=== PATIENT | male | born 1970 | race African-American/Black ===

== ENCOUNTER 2018-01-04 10:33 | Observation (INO) | payer BC ==
[2018-01-04] MEDS ORDERED: NEOSTIGMINE INJ ONE (10:35)
[2018-01-04] MEDS ORDERED: VERSED ONE (10:35)
[2018-01-04 10:38] VITALS: BMI 30.8
--- NOTE | 2018-01-04 13:23 | DR.GENAD ---
HPI - PCP Primary Care Physician: Rose - Complaint/Symptoms Chief Complaint Doctors Comments: Patient presents with complaint of right lower quadrant pain for one days duration. He denies fever, vomiting or diarrhea. He denies any allergies. Chief Complaint:: "Since about yesterday morning my lower right abdomen has been hurting really bad. It feels like a cramping pain." - Source History Provided: Patient - Mode of Arrival Mode of Arrival: Ambulatory - Timing Onset of Chief Complaint: 01/03/18 PMH - PMH Past Medical History: Yes Past Medical History: Hypertension Past Surgical History: Yes Surgical History: Ortho Surgery Past Surgical History Comment: Thumb - Family History History of Family Medical Conditions: Yes Family Medical History: [place], Hypertension - Social History Does patient currently use any type of tobacco product: No Have you used tobacco products in the last 12 months: No Type of Tobacco Use: None Does any household member use tobacco: No Alcohol Use: None Do you use any recreational Drugs:: No Lives With: Family Lives Where: Home - infectious screening In the last 2 months have you had wt loss of >10#?: NO Have you had fever, night sweats or hemotysis?: No Have you traveled outside the country in the last 6 months?: No Isolation: Standard ROS - Review of Systems Constitutional: No Symptoms Reported Eyes: No Symptoms Reported ENTM: No Symptoms Reported Respiratoy: No Symptoms Reported Cardiovascular: No Symptoms Reported Gastrointestinal/Abdominal: Abdominal Pain (RLQ) Genitourinary: No Symptoms Reported Neurological: No Symptoms Reported Musculoskeletal: No Symptoms Reported Integumentary: No Symptoms Reported Hematologic/Lymphatic: No Symptoms Reported Endocrine: No Symptoms Reported Psychiatric: No Symptoms Reported All Other Systems: Reviewed and Negative PE - Vital Signs Vitals: Temperature 98.1 F Pulse Rate 66 Respiratory Rate 18 Blood Pressure 147/83 O2 Sat by Pulse Oximetry 98 - General Limitations: No Limitations General Appearance: Alert, In No Apparent Distress - Head Head Exam: Normal Inspection, Atraumatic - Eyes Eye exam: Normal Appearance, PERRL, EOMI - ENT ENT Exam: Normal Exam External Ear Exam: Normal External Inspection TM/Canal Exam: Bilateral Normal Nose Exam: Normal Nose Exam Mouth Exam: Normal Inspection Throat Exam: Normal Inspection - Neck Neck Exam: Normal Inspection - Chest Chest Inspection: Normal Inspection - Respiratory Respiratory Exam: Normal Lung Sounds Bilat Respiratory Exam: Bilateral Clear to Auscultation - Cardiovascular Cardiovascular Exam: Regular Rate, Normal Rhythm - Abdominal Exam Abdominal Exam: Normal Inspection, Normal Bowel Sounds Abdominal Tenderness: RLQ - Extremities Extremities Exam: Normal Inspection, Full ROM - Back Back Exam: Normal Inspection, Full ROM - Neurologic Neurological Exam: Alert, Oriented X3, CN II-XII Intact - Psychiatric Psychiatric Exam: Normal Affect, Normal Mood - Skin Skin Exam: Warm, Dry, Intact Course - Reevaluation 1st: Unchanged - Consultation Called: 18:35 (Dr Church to admit for further evaluation and treatment) ROR - Labs Reviewed Result Diagrams: 01/04/18 14:15 01/04/18 13:36 Laboratory: WBC 6.1 X10^3/uL (3.6-10.0) 01/04/18 14:15 RBC 4.57 X10^6/uL (4.7-6.0) L 01/04/18 14:15 Hgb 14.9 g/dL (13.5-18.0) 01/04/18 14:15 Hct 43.0 % (42.0-54.0) 01/04/18 14:15 MCV 94.1 fL (80.0-100.0) 01/04/18 14:15 MCH 32.5 pg (27.0-34.0) 01/04/18 14:15 MCHC 34.6 g/dL (33.0-35.0) 01/04/18 14:15 RDW 12.8 % (11.6-16.5) 01/04/18 14:15 Plt Count 164 X10^3/uL (150.0-450.0) 01/04/18 14:15 MPV 8.6 fL (7.4-11.0) 01/04/18 14:15 Neut % 73.7 % (42.0-75.0) 01/04/18 14:15 Lymph % 16.6 % (21.0-51.0) L 01/04/18 14:15 [place] % 8.3 % (0.0-13.0) 01/04/18 14:15 Eos % 1.0 % (0.9-2.9) 01/04/18 14:15 Baso % 0.4 % (0.2-1.0) 01/04/18 14:15 Neut # 4.5 x10^3/uL (2.2-4.8) 01/04/18 14:15 Lymph # 1.0 X10^3/uL (1.3-2.9) L 01/04/18 14:15 Pitt # 0.5 x10^3/uL (0.3-0.8) 01/04/18 14:15 Eos # 0.1 x10^3/uL (0.0-0.2) 01/04/18 14:15 Baso # 0.0 X10^3/uL (0.0-0.1) 01/04/18 14:15 Absolute Nucleated RBC 0.0 /100WBC 01/04/18 14:15 Sodium 140 mmol/L (136-145) 01/04/18 13:36 Corrected Sodium TNP 01/04/18 13:36 Potassium 3.8 mmol/L (3.5-5.1) 01/04/18 13:36 Chloride 104 mmol/L (98-107) 01/04/18 13:36 Carbon Dioxide 31.0 mmol/L (21-32) 01/04/18 13:36 BUN 18 mg/dL (7-18) 01/04/18 13:36 Creatinine 1.17 mg/dL (0.70-1.30) 01/04/18 13:36 Est GFR (MDRD) Af Amer > 60 (>60) 01/04/18 13:36 Est GFR (MDRD) Non-Af > 60 (>60) 01/04/18 13:36 Glucose 93 mg/dL (65-99) 01/04/18 13:36 Calcium 8.7 mg/dL (8.5-10.1) 01/04/18 13:36 C-Reactive Protein 66.60 mg/L (0-3.0) H 01/04/18 13:36 - XRAY XRAY Interpreted by: Radiologist (Acute Abdomen: The heart is borderline enlarged. There is linear scar versus subsegmental atelectasis in the left mid lung. There is a nonspecific bowel gas pattern with a few midly air distended loops of small bowel and scattered air fluid levels withic could be seen with gastroenteritis without findigns of hig grade obstruction or ileus with air and stool noted throughout the colon. There are numerous radiopaque densities scattered throughout the upper abdomen and right lower quadrant which could reflext soft tissue calcifications or ingested substance and for which clinical correlation is recommended. Inspissated barium could conceivable give a similar it appearance if recent contrasted CT was performed. Osseous structuures are intact. Impression: Borderline cardiomegaly. Left midlung scar versus subsegmental atelectasis. Nonspecific bowel gas pattern. Numerous radiopaque densities in the abdomen CT Abd with Contrast: The appendix measures 1.27 cm diameter with a thickened wall. There is minimal stranding of fat planes about the appendix. There is no appendiculith. Three is no free fluid. There is no bowel distention. The liver and spleen and pancreas and kidneys and adrenal glands are unremarkab.e. There is a small umbilical hernia containing a loop of small bowel. Impression: Early acute appendicitis.) - Diagnosis Discharge Problem: Early appendicitis - Discharge Plan Condition: Stable - Follow ups/Referrals Follow ups/Referrals: Antionette PARK [Primary Care Provider] - 3 days - Instructions
--- NOTE | 2018-01-04 14:02 | RAD ---
HISTORY: Right lower quadrant pain Study: Acute abdominal series, three views were obtained Comparison: None Findings: The heart is borderline enlarged. There is linear scar versus subsegmental atelectasis in the left mi d lung. There is a nonspecific bowel gas pattern with a few mildly air distended loops of small bowel and scattered air-fluid levels which could be seen with gastroenteritis without findings of high-gra de obstruction or ileus with air and stool noted throughout the colon. There are numerous radiopaque densities scattered throughout the upper abdomen and right lower quadrant which could reflect soft ti ssue calcifications or ingested substance and for which clinical correlation is recommended. Inspissa zeferino barium could conceivably give a similar it appearance if recent contrasted CT was performed. Osse ous structures are intact. IMPRESSION: Borderline cardiomegaly. Left midlung scar versus subsegmental atelectasis. Nonspecific bowel gas pat tern. Numerous radiopaque densities in the abdomen as above. Reported By:
[2018-01-04 14:03] LABS: BLOOD UREA NITROGEN 18 mg/dL (7-18); CALCIUM 8.7 mg/dL (8.5-10.1); CHLORIDE 104 mmol/L (98-107); CREATININE 1.17 mg/dL (0.70-1.30); SODIUM 140 mmol/L (136-145); eGFR BLACK RACES > 60 (>60); eGFR NON BLACK RACES > 60 (>60)
[2018-01-04 14:24] LABS: BASOPHILS % (AUTO) 0.4 % (0.2-1.0); EOSINOPHILS # (AUTO) 0.1 x10^3/uL (0.0-0.2); HEMOGLOBIN 14.9 g/dL (13.5-18.0); LYMPHOCYTES % (AUTO) 16.6 % (21.0-51.0); MEAN CORPUSCULAR HEMOGLOBIN 32.5 pg (27.0-34.0); MEAN CORPUSCULAR HGB CONC 34.6 g/dL (33.0-35.0); MEAN CORPUSCULAR VOLUME 94.1 fL (80.0-100.0); MEAN PLATELET VOLUME 8.6 fL (7.4-11.0); MONOCYTES # (AUTO) 0.5 x10^3/uL (0.3-0.8); MONOCYTES % (AUTO) 8.3 % (0.0-13.0); NEUTROPHILS # (AUTO) 4.5 x10^3/uL (2.2-4.8); NEUTROPHILS % (AUTO) 73.7 % (42.0-75.0); PLATELET COUNT 164 X10^3/uL (150.0-450.0); RED BLOOD COUNT 4.57 X10^6/uL (4.7-6.0); RED CELL DISTRIBUTION WIDTH 12.8 % (11.6-16.5); WHITE BLOOD COUNT 6.1 X10^3/uL (3.6-10.0)
[2018-01-04] MEDS ORDERED: SUPRANE IN ONE (15:26)
[2018-01-04] MEDS ORDERED: LTA KIT LIDOCAINE 4% ONE (15:26)
[2018-01-04] MEDS ORDERED: ROBINUL ONE (15:26)
[2018-01-04] MEDS ORDERED: ZOFRAN INJ 4 MG VIAL ONE (15:26)
[2018-01-04] MEDS ORDERED: QUELICIN (OR ANECTINE) ONE (15:26)
[2018-01-04] MEDS ORDERED: DIPRIVAN VIAL ONE (15:26)
[2018-01-04] MEDS ORDERED: XYLOCAINE 2 % (PLAIN) ONE (15:26)
[2018-01-04] MEDS ORDERED: NORCURON INJ 10 MG VIAL ONE (15:26)
--- NOTE | 2018-01-04 17:39 | CT ---
History: Abdominal pain and right lower quadrant pain Study: CT of the abdomen and pelvis with 100 mL Omnipaque 350. Sagittal and coronal reformations were provided. Comparison: None Findings: The appendix measures 1.27 cm diameter with a thickened wall. There is minimal stranding of fat planes about the appendix. There is no appendiculith. There is no free fluid. There is no bowel distention. The liver and spleen and pancreas and kidneys and adrenal glands are unremarkable. There is a small u mbilical hernia containing a loop of small bowel. Impression: Early acute appendicitis Reported By:
[2018-01-04] MEDS ORDERED: ANCEF VIAL 1 GM ONE (17:59)
[2018-01-04] MEDS ORDERED: NS 100 ML IV + SPIKE MINIBAG* 100 ML IV ONE (17:59)
[2018-01-04] MEDS ORDERED: LR 1000 ML IV 1,000 ML IV ONE ×2 (18:00→21:05)
[2018-01-04] MEDS: ANCEF VIAL 1 GM 1 GM in NS 100 ML IV + SPIKE MINIBAG* 100 ML IV SCH (18:07)
[2018-01-04] MEDS ORDERED: NS 1000 ML 1,000 ML IV SCH ×2 (19:00→22:00)
[2018-01-04] MEDS ORDERED: LEVAQUIN PREMIX IV 500 MG 500 MG/100 ML BAG IV ONE (20:30)
[2018-01-04] MEDS ORDERED: DECADRON INJ ONE (20:52)
[2018-01-04] MEDS ORDERED: FENTANYL INJ 250 mcg ONE (20:52)
[2018-01-04] MEDS ORDERED: NS IRRIGATION 3000 ML 3,000 ML IR ONE (21:45)
--- NOTE | 2018-01-04 22:06 | OR.GENERIC ---
Post-Op Note Generic - Post-Op Note Operative Report: PO note : diagnostic laparoscopy and appendectomy was done .. finding acute appendecitis Pt did well . EBL < 10 cc NPO , on IV ATB , IVF .incentive spirometer and SCD ..
[2018-01-04] MEDS ORDERED: BENADRYL INJ 50 MG VIAL IVP PRN (22:10)
[2018-01-04] MEDS ORDERED: ZOFRAN INJ 4 MG VIAL IVP PRN (22:10)
[2018-01-04] MEDS ORDERED: DILAUDID INJ IVP PRN ×2 (22:10→22:28)
[2018-01-04] MEDS ORDERED: REGLAN INJ 10 MG VIAL IVP PRN (22:10)
[2018-01-04] MEDS ORDERED: PHENERGAN INJ 25 MG IVP PRN (22:10)
[2018-01-05] MEDS ORDERED: DILAUDID INJ ONE (04:26)
[2018-01-05 06:07] LABS: BASOPHILS % (AUTO) 0 % (0.2-1.0); HEMATOCRIT 40.7 % (42.0-54.0); LYMPHOCYTES # (AUTO) 0.4 X10^3/uL (1.3-2.9); LYMPHOCYTES % (AUTO) 5.3 % (21.0-51.0); MEAN CORPUSCULAR HEMOGLOBIN 32.5 pg (27.0-34.0); MEAN CORPUSCULAR HGB CONC 34.5 g/dL (33.0-35.0); MEAN CORPUSCULAR VOLUME 94.3 fL (80.0-100.0); MEAN PLATELET VOLUME 8.9 fL (7.4-11.0); MONOCYTES # (AUTO) 0.1 x10^3/uL (0.3-0.8); MONOCYTES % (AUTO) 1.5 % (0.0-13.0); NEUTROPHILS # (AUTO) 7.4 x10^3/uL (2.2-4.8); NEUTROPHILS % (AUTO) 93.2 % (42.0-75.0); PLATELET COUNT 165 X10^3/uL (150.0-450.0); RED BLOOD COUNT 4.31 X10^6/uL (4.7-6.0); RED CELL DISTRIBUTION WIDTH 12.8 % (11.6-16.5)
[2018-01-05 06:16] LABS: ALANINE AMINOTRANSFERASE 44 Units/L (12-78); ALBUMIN 3.2 g/dL (3.4-5.0); ALKALINE PHOSPHATASE 53 Units/L (46-116); ASPARTATE AMINO TRANSFERASE 30 Units/L (15-37); BLOOD UREA NITROGEN 18 mg/dL (7-18); CALCIUM 8.2 mg/dL (8.5-10.1); CARBON DIOXIDE 23.9 mmol/L (21-32); CHLORIDE 104 mmol/L (98-107); COR CA(FOR HYPOALB) 8.8 mg/dL (8.5-10.1); CREATININE 1.17 mg/dL (0.70-1.30); SODIUM 139 mmol/L (136-145); TOTAL PROTEIN 7.2 g/dL (6.4-8.2); eGFR BLACK RACES > 60 (>60); eGFR NON BLACK RACES > 60 (>60)
[2018-01-05 06:39] LABS: PLATELET MORPHOLOGY COMMENT NORMAL (NORMAL)
[2018-01-05] MEDS: ANCEF VIAL 1 GM 1 GM in NS 100 ML IV + SPIKE MINIBAG* 100 ML IV SCH (06:47)
--- NOTE | 2018-01-05 09:37 | DR.PROGNOT ---
Hospital Progress Notes - Progress Note for Day of: Progress Note Date: 01/05/18 - Chief Complaint Chief Complaint: PO Lap Appe day 1 . doing well . c/o gas pain , no Nausea or vomiting . OOB. normal CBC and afebrile . - Past Medical Family Social History Past Med/Fam/Surg Hx: No changes since H&P Allergies: Allergies No Known Drug Allergies Allergy (Verified 01/04/18 10:35) - Review Of Systems ROS: No change since H&P - Vital Signs Vital Signs: Temperature 98.2 F Pulse Rate [Right Radial] 77 Pulse Rate 66 Respiratory Rate 15 Blood Pressure [Right Arm] 121/58 Blood Pressure 120/76 O2 Sat by Pulse Oximetry 99 - Physical Exam Oriented: Normal Eyes: Normal Ear: Normal Nose: Normal Throat: Normal Cardiovascular: Normal : Normal GI:Auscultation: Decreased GI: Tenderness: RLQ, LLQ (clean incisions , no infection.) Mood Description: Calm Speech Pattern: Clear, Appropriate - Laboratory and Diagnostics Result Diagrams: 01/05/18 05:58 01/05/18 05:58 Labs: Laboratory WBC 8.0 X10^3/uL (3.6-10.0) 01/05/18 05:58 RBC 4.31 X10^6/uL (4.7-6.0) L 01/05/18 05:58 Hgb 14.0 g/dL (13.5-18.0) 01/05/18 05:58 Hct 40.7 % (42.0-54.0) L 01/05/18 05:58 MCV 94.3 fL (80.0-100.0) 01/05/18 05:58 MCH 32.5 pg (27.0-34.0) 01/05/18 05:58 MCHC 34.5 g/dL (33.0-35.0) 01/05/18 05:58 RDW 12.8 % (11.6-16.5) 01/05/18 05:58 Plt Count 165 X10^3/uL (150.0-450.0) 01/05/18 05:58 Plt Count Comment Adequate (ADEQUATE) 01/05/18 05:58 MPV 8.9 fL (7.4-11.0) 01/05/18 05:58 Neut % 93.2 % (42.0-75.0) H 01/05/18 05:58 Lymph % 5.3 % (21.0-51.0) L 01/05/18 05:58 Brooke % 1.5 % (0.0-13.0) 01/05/18 05:58 Eos % 0.0 % (0.9-2.9) L 01/05/18 05:58 Baso % 0 % (0.2-1.0) L 01/05/18 05:58 Neut # 7.4 x10^3/uL (2.2-4.8) H 01/05/18 05:58 Lymph # 0.4 X10^3/uL (1.3-2.9) L 01/05/18 05:58 Brooke # 0.1 x10^3/uL (0.3-0.8) L 01/05/18 05:58 Eos # 0.0 x10^3/uL (0.0-0.2) 01/05/18 05:58 Baso # 0.0 X10^3/uL (0.0-0.1) 01/05/18 05:58 Absolute Nucleated RBC 0.0 /100WBC 01/05/18 05:58 Total Counted 100 01/05/18 05:58 Neutrophils % (Manual) 97 % (39-76) H 01/05/18 05:58 Lymphocytes % (Manual) 1 % (13-43) L 01/05/18 05:58 Monocytes % (Manual) 2 % (4-9) L 01/05/18 05:58 Plt Morphology Comment Normal (NORMAL) 01/05/18 05:58 RBC Morphology Normal (NORMAL) 01/05/18 05:58 INR Target Range - 01/04/18 19:04 INR 1.08 (0.8-1.3) 01/04/18 19:04 PTT 31.6 SECONDS (22.9-36.5) 01/04/18 19:04 PTT Comment - 01/04/18 19:04 Sodium 139 mmol/L (136-145) 01/05/18 05:58 Corrected Sodium TNP 01/05/18 05:58 Potassium 3.9 mmol/L (3.5-5.1) 01/05/18 05:58 Chloride 104 mmol/L (98-107) 01/05/18 05:58 Carbon Dioxide 23.9 mmol/L (21-32) 01/05/18 05:58 BUN 18 mg/dL (7-18) 01/05/18 05:58 Creatinine 1.17 mg/dL (0.70-1.30) 01/05/18 05:58 Est GFR (MDRD) Af Amer > 60 (>60) 01/05/18 05:58 Est GFR (MDRD) Non-Af > 60 (>60) 01/05/18 05:58 Glucose 106 mg/dL (65-99) H 01/05/18 05:58 Calcium 8.2 mg/dL (8.5-10.1) L 01/05/18 05:58 Corrected Calcium 8.8 mg/dL (8.5-10.1) 01/05/18 05:58 Total Bilirubin 0.90 mg/dL (0.2-1.0) 01/05/18 05:58 AST 30 Units/L (15-37) 01/05/18 05:58 ALT 44 Units/L (12-78) 01/05/18 05:58 Alkaline Phosphatase 53 Units/L (46-116) 01/05/18 05:58 C-Reactive Protein 66.60 mg/L (0-3.0) H 01/04/18 13:36 Total Protein 7.2 g/dL (6.4-8.2) 01/05/18 05:58 Albumin 3.2 g/dL (3.4-5.0) L 01/05/18 05:58 Globulin 4.0 g/dL (2.5-4.5) 01/05/18 05:58 Albumin/Globulin Ratio 0.8 Ratio (1.1-2.1) L 01/05/18 05:58 Tissue Pathology To follow 01/04/18 21:49 - Assessment and Plan 1: PO appendectomy ,. stay on liquid diet today . OK to D/c today , light activities,change dressing daily. F/U in 10 days. given script for Narco5 for few days..
[2018-01-05 13:51] VITALS: BP 114/63
== END 2018-01-05 14:35 | disposition home or self-care (01) ==
LOC: ER 10:45 → MED/SURG 18:39
PROVIDERS: ADMIT Internal Medicine; ATTEND Internal Medicine
PROC: 0FT44ZZ Resection of Gallbladder, Percutaneous Endoscopic Approach (ICD-10-PCS; principal; 2018-01-04 20:00)
DX: K35.89 Other acute appendicitis (principal); R10.31 Right lower quadrant pain; I10 Essential (primary) hypertension; R94.31 Abnormal electrocardiogram [ECG] [EKG]; R79.82 Elevated C-reactive protein (CRP)
CPT/HCPCS: 36415; 74022; 74177; 80048; 80053; 85025; 85610; 85730; 86140; 93005; 93010; 94760; 96365; 96374; 99284; A4216; A4222; G0378; J0330; J0690; J1100; J1170; J1956; J2001; J2250; J2405; J2710; J3010; J3490; J7120

== ENCOUNTER 2018-01-25 07:28 | Day surgery (SDC) | payer BC ==
[2018-01-25] MEDS ORDERED: D5 LR 1000 ML 1,000 ML IV ONE (07:32)
[2018-01-25] MEDS ORDERED: DIPRIVAN VIAL 20 ML ONE ×2 (08:27→08:39)
[2018-01-25] MEDS ORDERED: XYLOCAINE 2 % (PLAIN) ONE (08:27)
[2018-01-25 09:01] VITALS: BP 131/83
== END 2018-01-25 09:05 | disposition home or self-care (01) ==
LOC: SURG1 07:28
PROVIDERS: ATTEND Surgery
PROC: 0DJD8ZZ Inspection of Lower Intestinal Tract, Via Natural or Artificial Opening Endoscopic (ICD-10-PCS; principal; 2018-01-25 08:30)
PROC: 0DBP8ZX Excision of Rectum, Via Natural or Artificial Opening Endoscopic, Diagnostic (ICD-10-PCS; principal; 2018-01-25 08:30)
PROC: 0DBM8ZX Excision of Descending Colon, Via Natural or Artificial Opening Endoscopic, Diagnostic (ICD-10-PCS; principal; 2018-01-25 08:30)
DX: Z12.11 Encounter for screening for malignant neoplasm of colon (principal); K63.5 Polyp of colon; K62.1 Rectal polyp
CPT/HCPCS: A4217; J2001; J3490; J7120